=== PATIENT | male | born 1985 | race Caucasian/White ===

== ENCOUNTER 2019-10-08 20:03 | Emergency (ER) | payer MEDICAID, OTHER ==
[~2019-10-08] VITALS: Ht 185.4 cm; Wt 98.9 kg
[2019-10-08 20:15] VITALS: BP 130/91
[2019-10-08] MEDS ORDERED: GASTROGRAFIN 30 ML SOL ONE (20:26)
== END 2019-10-08 21:30 | disposition left against medical advice (07) ==
LOC: ER 20:06
DX: T17.228A Food in pharynx causing other injury, initial encounter (principal); Z53.21 Procedure and treatment not carried out due to patient leaving prior to being seen by health care provider; W22.8XXA Striking against or struck by other objects, initial encounter; Y93.89 Activity, other specified; Y92.098 Other place in other non-institutional residence as the place of occurrence of the external cause; Y99.8 Other external cause status
CPT/HCPCS: 70490; Q9963

== ENCOUNTER → 2022-03-24 | Emergency (ER) | payer BC, MEDICAID ==
[~2022-03-24] VITALS: Ht 185.4 cm; Wt 81.6 kg
[2022-03-24 02:05] VITALS: BP 115/82
== END | disposition home or self-care (01) ==
LOC: ER 02:05
DX: S62.394A Other fracture of fourth metacarpal bone, right hand, initial encounter for closed fracture (principal); X58.XXXA Exposure to other specified factors, initial encounter; Y93.89 Activity, other specified; Y92.9 Unspecified place or not applicable; Y99.8 Other external cause status
CPT/HCPCS: 29125; 73130